=== PATIENT | male | born 1995 | race Caucasian/White ===

== ENCOUNTER 2019-08-07 01:00 | Emergency (ER) | payer SELFPAY ==
[~2019-08-07] VITALS: Ht 175.3 cm; Wt 102.1 kg
[2019-08-07] MEDS ORDERED: PANTOPRAZOLE 40 MG 10ML VIAL IV STA (01:17)
[2019-08-07] MEDS ORDERED: DICYCLOMINE HCL 20 MG/2 ML VIAL IM ONE ×2 (01:23→01:30)
[2019-08-07 01:27] LABS: BASOPHILS % 0.5 % (0.0-1.0); EOSINOPHILS # (AUTO) 0.1 (0.0-0.4); EOSINOPHILS % 1.9 % (0.0-6.0); HEMATOCRIT 42.9 % (38.2-49.6); HEMOGLOBIN 14.6 g/dL (14.0-18.0); LYMPHOCYTES # (AUTO) 2.8 (1.0-3.2); LYMPHOCYTES % 38.3 % (18.0-39.1); MEAN CORPUSCULAR HEMOGLOBIN 29.6 pg (28-32); MONOCYTES # (AUTO) 0.7 (0.2-0.8); MONOCYTES % 9.8 % (4.4-11.3); NEUTROPHILS # (AUTO) 3.6 (2.1-6.9); NEUTROPHILS % 49.1 % (38.7-80.0); PLATELET COUNT 265 x10e3/uL (140-360); RED BLOOD COUNT 4.93 x10e6/uL (4.3-5.7); RED CELL DISTRIBUTION WIDTH 11.8 % (11.7-14.4)
[2019-08-07 01:29] LABS: CLARITY,URINE CLEAR (CLEAR); COLOR,URINE YELLOW (YELLOW)
[2019-08-07 01:30] LABS: BILIRUBIN,URINE NEGATIVE (NEGATIVE); KETONES,URINE NEGATIVE (NEGATIVE); LEUKOCYTE ESTERASE ,URINE NEGATIVE (NEGATIVE); NITRITE,URINE NEGATIVE (NEGATIVE); PROTEIN,URINE DIPSTICK NEGATIVE (NEGATIVE); URINE UROBILINOGEN 0.2 mg/dL (0.2 - 1)
[2019-08-07 01:44] LABS: BACTERIA,URINE FEW /HPF; EPITHELIAL CELLS,URINE FEW /LPF; MUCUS,URINE MODERATE (RARE); RBC,URINE 0-5 /HPF (0-5); WBC,URINE (MAN) 0-5 /HPF (0-5)
[2019-08-07 01:52] LABS: ALANINE AMINOTRANSFERASE 46 IU/L (0-55); ALBUMIN 4.1 g/dL (3.5-5.0); ALBUMIN/GLOBULIN RATIO 1.4 (0.8-2.0); ALKALINE PHOSPHATASE 107 IU/L (40-150); ANION GAP 13.8 mmol/L (8-16); BLOOD UREA NITROGEN 12 mg/dL (7-26); CALCIUM 9.4 mg/dL (8.4-10.2); CARBON DIOXIDE 27 mmol/L (22-29); CHLORIDE 105 mmol/L (98-107); POTASSIUM 3.8 mmol/L (3.5-5.1); SODIUM 142 mmol/L (136-145)
[2019-08-07 02:07] LABS: BUN/CREATININE RATIO 12 (6-25); CREATININE, SERUM 1.01 mg/dL (0.72-1.25); EST GLOMERULAR FILTRATION RATE > 60 ML/MIN (60-); GLUCOSE 115 mg/dL (74-118)
[2019-08-07 02:28] LABS: AMYLASE 51 U/L (25-125); LIPASE 15 U/L (8-78)
--- NOTE | 2019-08-07 03:01 | Diagnostic Imaging Report ---
HISTORY: ^ruq pain ^[id number] ^[id number] ^Y TECHNIQUE: Selected images from limited abdominal ultrasound provided for INTERPRETATION: COMPARISON: None. FINDINGS: Pancreas: Visualized structures are increased in echotexture suggestive of lipomatosis. No mass or ductal dilatation. Liver: Measures 14.4 cm in sagittal plane. The echotexture is increased. No mass in the visualized portions. Portal Vein: Measures 1.0 cm. Proper directional flow on spectral Doppler interrogation. Intrahepatic bile ducts: Normal Gallbladder: Multiple calcified stones in the fundus measure up to 15 mm. There is narrowing in the distal body which may be secondary to adenomyomatosis. There is a suggestion of a stone in the gallbladder neck measuring 11 mm. No decubitus images were obtained. No gallbladder wall thickening or pericholecystic fluid. CBD: 0.3 cm. Right Kidney: 10.2 cm in greatest length. The echotexture is normal. There is no evidence for mass. There is no collecting system dilatation or evidence of obstruction. No renal calculi evident. No adjacent free fluid or fluid collections. Visualized IVC and aorta are normal. There is no free fluid. IMPRESSION: 1. Cholelithiasis. An impacted stone in the gallbladder neck cannot be excluded. Multiple gallstones in the gallbladder fundus. No biliary ductal dilatation. 2. Steatosis. Signed by: Dr. Oz Dumont MD on 08/07/2019 2:59 AM
[2019-08-07 03:30] VITALS: BP 132/79
== END 2019-08-07 03:30 | disposition home or self-care (01) ==
LOC: ER 01:00
DX: R10.11 Right upper quadrant pain (principal); R10.13 Epigastric pain; K80.20 Calculus of gallbladder without cholecystitis without obstruction
CPT/HCPCS: 36415; 76705; 80053; 81001; 82150; 83690; 85025; 99284; C9113; J0500